=== PATIENT | female | born 1970 | race Caucasian/White ===

== ENCOUNTER → 2017-08-18 09:50 | Outpatient (CLI) | payer BC, SELFPAY ==
--- NOTE | 2017-08-18 08:00 | BRBX_PTH ---
PATIENT: LAKISHA OZUNA LOC: [facility] U#:[id number] AGE/SX: 55/F ROOM: RE08/18/[address]: Dr. Rc Goodman MD : 1970 BED: DIS: SPEC #: [id number] RECD: 08/18/17 09:44 STATUS: KAREEN ROHITH #: [id number] GILMAR: 08/18/17 08:[address]: Rc Goodman DEPT: SURGICAL PATHOLOGY RECD BY: Quique Rodriguez ENTERED: 08/18/17 10:06 SP TYPE: BREAST BX OTHR DR: Dr. Deisy Hilton MD Tissues: A - Left breast, NOS B - Left axillary region C - Right axillary region Procedures: Surgery Specimen Level IV HEADER OPERATION: Left breast biopsy and excision skin lump x2 PRE-OP DIAGNOSIS: Left breast abnormal ultrasound, skin mass x2 TISSUE SUBMITTED: A ? Left breast tissue, B ? Left axilla lump, C ? Right lateral chest lump ISCHEMIC TIME: 1 minute FIXATION TIME: 11.5 hours MICROSCOPIC DIAGNOSIS A. Left breast tissue, core biopsy: Fibroadenoma. Negative for atypia or malignancy in the submitted specimen. B. Left axilla lump, biopsy: Intradermal nevus, completely excised in the planes of sections examined. C. Right lateral chest lump, excisional biopsy: Dermatofibroma. GUADALUPE:kayode 08/19/17 MICROSCOPIC DESCRIPTION Slides are reviewed. GROSS DESCRIPTION A - Received in fixative is one container labeled with the patient's name and designated left breast. The specimen consists of two elongated pieces of chester-yellow fibroadipose tissue each measuring 1.2 cm in length and 0.1 cm in diameter. The entire specimen is submitted in one cassette. B - Received in fixative is one container labeled with the patient's name and designated left axilla. The specimen consists of a piece of skin with underlying tissue measuring 0.7 x 0.7 x 0.3 cm. The specimen is inked, bisected and submitted entirely in one cassette. C - Received in fixative is one container labeled with the patient's name and designated right lateral chest. The specimen consists of a piece of skin with underlying tissue measuring 1.5 x 0.9 cm and up to 0.7 cm in thickness. The specimen is inked, serially sectioned and submitted entirely in one cassette. / GUADALUPE:kayode 08/18/17 TC:1 CPT: 54347 x2
== END ==
LOC: LAB 09:53 → LABSPEC 09:54
PROVIDERS: Family Provider Family Medicine; PCP Family Medicine; Visit Provider Surgery
DX: R92.8 Other abnormal and inconclusive findings on diagnostic imaging of breast (principal); L98.8 Other specified disorders of the skin and subcutaneous tissue
CPT/HCPCS: 88305

== ENCOUNTER → 2019-04-21 | Outpatient (CLI) | payer BC, SELFPAY ==
--- NOTE | 2019-04-21 08:45 | BI_ITS ---
MAMMOGRAPHY - BILATERAL SCREENING 3-D TOMOSYNTHESIS REASON FOR EXAM: Female, 49 years old. Screening PERTINENT HISTORY: No significant family history. BILATERAL DIGITAL MAMMOGRAM WITH TOMOSYNTHESIS: Mediolateraloblique and craniocaudal views demonstrate no evidence of dominant parenchymal masses. No cluster of microcalcifications or architectural distortion is seen. There is evidence of a previous left breast biopsy with [address] No evidence of skin thickening is identified. There has been no significant change since 08/09/2017. Breast Density: The breast tissue is extremely dense which may lower the sensitivity of mammography. CAD was used to assist in final assessment. IMPRESSION: NORMAL MAMMOGRAM BILATERALLY. FINAL ASSESSMENT: FINAL ASSESSMENT: BI-RAD CATEGORY I (NEGATIVE) YEARLY MAMMOGRAPHY RECOMMENDED Approximately 10% of breast cancers are not detected by mammography. A normal mammogram should not delay biopsy of a clinically suspicious abnormality. Electronically Signed: Kemar Garcia, at 7:08 EDT Tel , Service support , BI/SCREEN MAMM (CAD) W/SKY WILLIAMSON
== END | disposition home or self-care (01) ==
PROVIDERS: Family Provider Family Medicine; PCP Family Medicine; Referring Provider Nurse Practitioner Family; Visit Provider Nurse Practitioner Family
DX: Z12.31 Encounter for screening mammogram for malignant neoplasm of breast (principal)
CPT/HCPCS: 77063; 77067

== ENCOUNTER 2019-06-01 07:05 | Day surgery (SDC) | payer BC, SELFPAY ==
--- NOTE | 2019-04-30 02:13 | HP_ITS ---
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 Is patient in pain?: Yes (abdominal tenderness/ pressure) Allergies No Known Allergies Allergy (Unverified 03/06/19 11:31) Medications sour shepard extract 1,000 mg capsule 1,200 mg PO cap 04/30/19 [History Confirmed 04/30/19] PFSH Medical History Anemia (Acute) Constipation (Acute) Diarrhea (Acute) Nausea (Acute) Abdominal pain (Acute) Back problem (Acute) Fatigue (Acute) Surgical History History of colonoscopy (Acute) History of hysterectomy (Acute) delivery delivered (Acute) Family History Mother Colon cancer Polycystic kidney disease Father Hypertension Sister Polycystic kidney disease Social History (Updated 04/30/19 @ 16:41 by Rc Goodman MD) Smoking Status: Never smoker second hand exposure: No alcohol intake: current alcohol intake frequency: holidays/special occasions only substance use type: does not use caffeine: Yes what type of physical activity do you participate in: walking, running, weight training frequency: 3-4 times per week HPI HPI HPI: LAKISHA OZUNA, is a 49 F who presents to the office today for HPI HPI Surgical H&P: Yes HPI: LAKISHA OZUNA, is a 49 F who presents to the office today for consideration of a colonoscopy. The patient enjoys good health. She is perimenopausal. She has had some weight gain. She has had some foods with increased fiber that causes her to bloat belch. She has not had any bright red blood per rectum or melena. She does have menopausal night sweats but no fever or chills. She has had some slight weight gain. She does exercise routinely. She denies chest pain palpitations or shortness of breath. May 07, 2008 because of lower abdominal pain at that time she had had a colonoscopy. Visually by Dr. Bradley there was felt to be edema in the colon. Biopsies were obtained but failed to demonstrate microcytic colitis. They failed to demonstrate any acute problem. The patient does have family history with a mother who had colon cancer. I have assisted the patient in the past for breast biopsy which identified benign disease/fibroadenoma on the left. ROS General General: Yes weight change and fatigue; no appetite, colon cancer, breast cancer or weakness HEENT HEENT: No difficulty swallowing, eye injury, eye surgery, swollen glands or hoarseness Endo Endocrine: No thyroid disease, diabetes mellitus, thyroid cancer, Hair loss, heat intolerance or cold intolerance Skin Skin: No rash or changing moles Musc Musculoskeletal: Yes back problems; no arthritis, rheumatoid arthritis, gout or joint pain Cardio Cardiovascular: No murmur, pacemaker, heart disease, atrial fibrillation, high blood pressure, heart attack, heart stent, palpitations, shortness of breat with exertion or chest pain Psych Psychiatric: No depression, anxiety or hearing voices Resp Respiratory: No shortness of breath, No sleep apnea, No cough, No COPD, No asthma, No emphysema, No wheezing Gastro Gastrointestinal: Yes abdominal pain, Yes nausea or vomiting, Yes diarrhea, Yes constipation, No blood in stool, No acid reflux, No hemorrhoids, No ulcers, No gallbladder problem, No black,tarry stools Collins Hematologic: No blood thinners, No blood disorders, No bleeding, Yes anemia, No blood clots Neuro Neurologic: No system reviewed and no additional complaints, except as docu, No as per HPI, No abnormal walking, No abnormal hearing, No abnormal movements, No abnormal speech, No behavioral changes, No burning sensations, No confusion, No seizure-like activity, No unsteadiness, No dizziness, No localized weakness, No frequent falls, No headache(s), No lack of coordination, No loss of vision, No memory loss, No numbness, No other visual disturbances, No radiating pain, No restless legs, No sensory deficit, No fainting, No tingling, No tremor(s), No weakness, No other Exam Const General: cooperative, healthy appearing, comfortable, no acute distress Nutritional Appearance: average body habitus Orientation: alert, awake, oriented x3 HENMT Head: normal to inspection Resp Effort & Inspection: normal respiratory effort Auscultation: clear to auscultation bilaterally Cardio Rate: regular rate Rhythm: regular rhythm Heart Sounds: no murmurs GI Palpation: soft, no hepatosplenomegaly Auscultation: normal bowel sounds Other: Slight tenderness overlying the pulsatile aorta, not expansile Skin General: no rashes or lesions noted Neuro Cognition: normal cognition Extrem General: no calf tenderness bilaterally Psych Affect: normal affect Assessment & Plan Problems 1. Screening for intestinal cancer Z12.10 Plan I have recommended the patient a screening colonoscopy with possible biopsy or polypectomy as indicated. She is aware of the technique, benefits, risks and alternatives. I will have a lower tendency to consider random biopsies. Her concerns of some random bloating are very nonspecific. She has had an opportunity to ask and have questions answered. We will schedule procedure at her discretion. I will utilize monitored anesthesia care. cc: Dr Deisy Goodman M.D., F.A.C.S. Orders Orders: Colonoscopy Today Z12.10 Coding Level of Care Code Off vis,est,level 2 Diagnoses Screening for intestinal cancer Z12.10 04/30/19 1641 <Electronically signed by Rc jennings MD> Date _ Rc oGodman MD
[2019-04-30 13:56] VITALS: BMI 25.8
[2019-06-01] VITALS (7 sets, daily range): BP systolic 116–130; BP diastolic 79–91; PULSE 71–87; RESP 16; TEMP 36.6; O2SAT 98–100; BMI 25.9
--- NOTE | 2019-06-01 05:55 | HP.PCM_ITS ---
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 Is patient in pain?: Yes (abdominal tenderness/ pressure) Allergies No Known Allergies Allergy (Unverified 03/06/19 11:31) Medications sour shepard extract 1,000 mg capsule 1,200 mg PO cap 04/30/19 [History Confirmed 04/30/19] PFS Medical History Anemia (Acute) Constipation (Acute) Diarrhea (Acute) Nausea (Acute) Abdominal pain (Acute) Back problem (Acute) Fatigue (Acute) Surgical History History of colonoscopy (Acute) History of hysterectomy (Acute) delivery delivered (Acute) Family History Mother Colon cancer Polycystic kidney disease Father Hypertension Sister Polycystic kidney disease Social History (Updated 04/30/19 @ 16:41 by Rc Goodman MD) Smoking Status: Never smoker second hand exposure: No alcohol intake: current alcohol intake frequency: holidays/special occasions only substance use type: does not use caffeine: Yes what type of physical activity do you participate in: walking, running, weight training frequency: 3-4 times per week HPI HPI HPI: LAKISHA OZUNA, is a 49 F who presents to the office today for HPI HPI Surgical H&P: Yes HPI: LAKISHA OZUNA, is a 49 F who presents to the office today for consideration of a colonoscopy. The patient enjoys good health. She is perimenopausal. She has had some weight gain. She has had some foods with increased fiber that causes her to bloat belch. She has not had any bright red blood per rectum or melena. She does have menopausal night sweats but no fever or chills. She has had some slight weight gain. She does exercise routinely. She denies chest pain palpitations or shortness of breath. May 07, 2008 because of lower abdominal pain at that time she had had a colonoscopy. Visually by Dr. Bradley there was felt to be edema in the colon. Biopsies were obtained but failed to demonstrate microcytic colitis. They failed to demonstrate any acute problem. The patient does have family history with a mother who had colon cancer. I have assisted the patient in the past for breast biopsy which identified benign disease/fibroadenoma on the left. ROS General General: Yes weight change and fatigue; no appetite, colon cancer, breast cancer or weakness HEENT HEENT: No difficulty swallowing, eye injury, eye surgery, swollen glands or hoarseness Endo Endocrine: No thyroid disease, diabetes mellitus, thyroid cancer, Hair loss, heat intolerance or cold intolerance Skin Skin: No rash or changing moles Musc Musculoskeletal: Yes back problems; no arthritis, rheumatoid arthritis, gout or joint pain Cardio Cardiovascular: No murmur, pacemaker, heart disease, atrial fibrillation, high blood pressure, heart attack, heart stent, palpitations, shortness of breat with exertion or chest pain Psych Psychiatric: No depression, anxiety or hearing voices Resp Respiratory: No shortness of breath, No sleep apnea, No cough, No COPD, No asthma, No emphysema, No wheezing Gastro Gastrointestinal: Yes abdominal pain, Yes nausea or vomiting, Yes diarrhea, Yes constipation, No blood in stool, No acid reflux, No hemorrhoids, No ulcers, No gallbladder problem, No black,tarry stools Collins Hematologic: No blood thinners, No blood disorders, No bleeding, Yes anemia, No blood clots Neuro Neurologic: No system reviewed and no additional complaints, except as docu, No as per HPI, No abnormal walking, No abnormal hearing, No abnormal movements, No abnormal speech, No behavioral changes, No burning sensations, No confusion, No seizure-like activity, No unsteadiness, No dizziness, No localized weakness, No frequent falls, No headache(s), No lack of coordination, No loss of vision, No memory loss, No numbness, No other visual disturbances, No radiating pain, No restless legs, No sensory deficit, No fainting, No tingling, No tremor(s), No weakness, No other Exam Const General: cooperative, healthy appearing, comfortable, no acute distress Nutritional Appearance: average body habitus Orientation: alert, awake, oriented x3 HENMT Head: normal to inspection Resp Effort & Inspection: normal respiratory effort Auscultation: clear to auscultation bilaterally Cardio Rate: regular rate Rhythm: regular rhythm Heart Sounds: no murmurs GI Palpation: soft, no hepatosplenomegaly Auscultation: normal bowel sounds Other: Slight tenderness overlying the pulsatile aorta, not expansile Skin General: no rashes or lesions noted Neuro Cognition: normal cognition Extrem General: no calf tenderness bilaterally Psych Affect: normal affect Assessment & Plan Problems 1. Screening for intestinal cancer Z12.10 Plan I have recommended the patient a screening colonoscopy with possible biopsy or polypectomy as indicated. She is aware of the technique, benefits, risks and alternatives. I will have a lower tendency to consider random biopsies. Her concerns of some random bloating are very nonspecific. She has had an opportunity to ask and have questions answered. We will schedule procedure at her discretion. I will utilize monitored anesthesia care. cc: Dr Deisy Goodman M.D., F.A.C.S. I have re-examined the patient. There are no clinical changes since date of exam.
[2019-06-01] MEDS: Lactated Ringers 1,000 ML 100 ML IV (07:42)
--- NOTE | 2019-06-01 09:11 | OP.COLON_ITS ---
Patient Name: Nikia Thakur Procedure Date: 06/01/2019 8:24 AM Date of : 1970 Age: 49 Procedure: Colonoscopy Indications: Screening for colorectal malignant neoplasm Providers: Rc Goodman MD Referring MD: Deisy Hilton Medicines: See the Anesthesia note for documentation of the administered medications Patient Profile: Last Colonoscopy: 2007. Complications: No immediate complications. Procedure: Pre-Anesthesia Assessment: - Prior to the procedure, a History and Physical was performed, and patient medications and allergies were reviewed. The patient's tolerance of previous anesthesia was also reviewed. The risks and benefits of the procedure and the sedation options and risks were discussed with the patient. All questions were answered, and informed consent was obtained. Prior Anticoagulants: The patient has taken no previous anticoagulant or antiplatelet agents. ASA Grade Assessment: II - A patient with mild systemic disease. After reviewing the risks and benefits, the patient was deemed in satisfactory condition to undergo the procedure. After I obtained informed consent, the scope was passed under direct vision. Throughout the procedure, the patient's blood pressure, pulse, and oxygen saturations were monitored continuously. The colonoscope was introduced through the anus and advanced to the cecum, identified by appendiceal orifice and ileocecal valve. The colonoscopy was extremely difficult due to a redundant colon, significant looping and a tortuous colon. Successful completion of the procedure was aided by increasing the dose of sedation medication, changing the patient to a supine position and using manual pressure. The patient tolerated the procedure well. The quality of the bowel preparation was good. The ileocecal valve was photographed. Scope In: 8:31:09 AM Scope Withdrawal Time 0 hours 6 minutes 35 seconds Scope Out: 9:06:45 AM Total Procedure Duration Time 0 hours 35 minutes 36 seconds Findings: Hemorrhoids were found on perianal exam. The colon (entire examined portion) revealed significantly excessive looping. Advancing the scope required changing the patient to a supine position, using manual pressure, withdrawing and reinserting the scope, withdrawing the scope and replacing with the adult endoscope and straightening and shortening the scope to obtain bowel loop reduction. The exam was otherwise without abnormality. Impression: - Hemorrhoids found on perianal exam. - There was significant looping of the colon. - The examination was otherwise normal. - No specimens collected. Recommendation: - Discharge patient to home. - Resume previous diet. - Continue present medications. - Repeat colonoscopy in 10 years for screening purposes. Procedure Code(s): --- Professional --- 69807, Colonoscopy, flexible; diagnostic, including collection of specimen(s) by brushing or washing, when performed (separate procedure) Diagnosis Code(s): --- Professional --- Z12.11, Encounter for screening for malignant neoplasm of colon K64.9, Unspecified hemorrhoids CPT copyright 2017 [employer]. All rights reserved. The codes documented in this report are preliminary and upon rivet heater gas review may be revised to meet current compliance requirements. Rc Goodman MD 06/01/2019 9:11:22 AM This report has been signed electronically. Number of Addenda: 0 Note Initiated On: 06/01/2019 8:24 AM
[2019-06-01] MEDS: Acetaminophen 500 MG Tablet 1000 MG PO (10:15)
== END 2019-06-01 11:05 | disposition home or self-care (01) ==
LOC: EN 07:06 → AC 07:07
PROVIDERS: Family Provider Family Medicine; PCP Family Medicine; Referring Provider Family Medicine; Visit Provider Surgery
PROC: 0DJD8ZZ Inspection of Lower Intestinal Tract, Via Natural or Artificial Opening Endoscopic (ICD-10-PCS; CPT 45378; principal; 2019-06-01 07:55)
DX: Z12.11 Encounter for screening for malignant neoplasm of colon (principal); Z80.0 Family history of malignant neoplasm of digestive organs; K64.9 Unspecified hemorrhoids
CPT/HCPCS: 45378; J7120; J2405

== ENCOUNTER → 2020-03-19 16:05 | Outpatient (CLI) | payer BC, SELFPAY ==
[2019-06-01 07:27] VITALS: BMI 25.9
[2020-03-19 17:38] LABS: Absolute Lymphocyte Count 2.16 X10^3/uL (0.83-4.51); Absolute Neutrophil Count 3.3 X10^3/uL (2.0-7.7); Basophil# 0.04 X10^3/uL; Basophil% 0.6 % (0-1); Eosinophil# 0.36 X10^3/uL; Eosinophils% 5.7 % (0-5); Hematocrit 40.3 % (37-47); Hemoglobin 13.6 g/dL (12.0-15.0); Lymphocyte # 2.16 X10^3/ul (4.0); Lymphocyte % 34.2 % (19-41); Mean Corp Hgb Conc 33.7 g/dL (32-36); Mean Corpuscular Hgb 30.3 pg (27.0-32.0); Mean Corpuscular Volume 89.8 fL (81-99); Mean Platelet Vol. 10.2 fl (6.2-12.0); Monocyte# 0.44 X10^3/uL; NRBC Flagged by Analyzer 0 % (0-5); Neutrophil # 3.31 X10^3/uL (2.7-7.7); Neutrophil % 52.3 % (47-70); Platelet Count 196 K/mm3 (150-450); RBC Distribution Width CV 12.1 % (11.6-14.6); RBC Distribution Width SD 39.9 fl (35.1-43.9); Red Blood Count 4.49 M/mm3 (4.2-5.4); White Blood Count 6.3 K/mm3 (4.4-11.0)
[2020-03-19 18:25] LABS: Anion Gap 4 (5-15); BUN 13 mg/dL (7-18); BUN/Creat Ratio 15.8 RATIO (10-20); Calcium,Total 9.2 mg/dL (8.5-10.1); Chloride 107 mmol/L (98-107); Creatinine, Serum 0.82 mg/dL (0.55-1.02); EST Glomerular Filtration Rate 77 mL/min (>60); Est Glom Filt Rate - Afr Amer 94 mL/min (>60); Glucose 85 mg/dL (74-106); Potassium 3.7 mmol/L (3.5-5.1); Sodium Level 139 mmol/L (136-145); Thyroid Stim Hormone (TSH) 1.07 uIU/mL (0.358-3.74)
== END ==
PROVIDERS: PCP Family Medicine; Referring Provider Family Medicine; Visit Provider Family Medicine
DX: Z78.0 Asymptomatic menopausal state (principal)
CPT/HCPCS: 36415; 80048; 84443; 85025

== ENCOUNTER → 2021-03-03 09:26 | Outpatient (CLI) | payer BC, SELFPAY ==
[2019-06-01 07:27] VITALS: BMI 25.9
--- NOTE | 2021-03-03 09:31 | MRI_ITS ---
STUDY: MRI BRAIN WITH AND WITHOUT CONTRAST REASON FOR EXAM: Female, 51 years old patient with acute neurological changes. Patient has migraine headache with numbness and tingling in left arm and neck pain for seven days. TECHNIQUE: Standardized multiplanar fat and water weighted pulse sequences were obtained. 15 ml of IV Dotarem was administered for the contrast portion of the examination. COMPARISON: Prior comparison studies are not available for review at this time. FINDINGS: Normal size of the ventricles and extra-axial spaces for the patient''s age. There are scattered foci of abnormal T2 hyperintensity present primarily in the subcortical white matter of the parietal lobes and left echavarria radiata. Normal T2* images of the brain without demonstrated susceptibility artifact. There is no demonstrated hemosiderin stain. There is no evidence for recent intracranial ischemia or other cause of cytotoxic edema on diffusion weighted imaging (DWI). Normal bilateral basal ganglia. Normal thalami. There is no extra-axial fluid accumulation. Normal flow voids within the major intracranial circulation suggesting patency by spin echo criteria. Normal venous enhancement. There is no enhancing intra-axial or extra-axial abnormality. Normal sella turcica, pituitary gland, infundibular stalk, optic chiasm and hypothalamus. Normal tectal plate and pineal gland. Normal midbrain, nathan and medulla. Normal cerebellum. Normal basal cisterns. Normal bilateral temporal bones. Normal bilateral internal auditory canals. No demonstrated orbital abnormality, within the constraints of a routine brain study. Normal visualized paranasal sinuses. Normal calvarium and skull base. Normal visualized soft tissue structures. Normal visualized upper cervical spine. MRI/Brain W/WO Contrast IMPRESSION: 1. Scattered foci of abnormal signal within the white matter. This is abnormal for patient this age. The appearance suggests possible sequela demyelination. 2. No MR evidence to suggest acute infarct or active demyelination. Electronically Signed: Marti Doty MD at 14:47 EDT , Service support ,
== END ==
PROVIDERS: PCP Family Medicine; Referring Provider Nurse Practitioner Family; Visit Provider Nurse Practitioner Family
DX: R29.818 Other symptoms and signs involving the nervous system (principal)
CPT/HCPCS: 70553; A9575

== ENCOUNTER → 2021-05-06 10:44 | Outpatient (CLI) | payer BC, SELFPAY ==
[2021-05-06 12:07] LABS: Erythrocyte Sedimentation Rate 2 mm/hr (0-30)
[2021-05-06 12:18] LABS: Cholesterol 180 mg/dL (200); High Density Lipoprotein 60 mg/dL; Triglycerides 79 mg/dL; Very Low Density Lipoprotein 16 mg/dL (5-40)
[2021-05-07 15:21] LABS: ANTINUCLEAR ANTIBODIES DIRECT Negative (Negative)
[2021-05-12 11:08] LABS: Complement C3 114 mg/dL (82-167); PTT-LA 35.1 sec (0.0-51.9); Protein C Antigen 139 % (60-150); Protein S, Free 98 % (61-136); Thrombin Time 18.7 sec (0.0-23.0)
[2021-05-12 15:00] LABS: Anti-Cardiolipin Ab, IgA, Qn < 9 APL U/mL (0-11); Anti-Cardiolipin Ab, IgG, Qn < 9 GPL U/mL (0-14); Anti-Cardiolipin Ab, IgM, Qn 18 MPL U/mL (0-12); Anti-Thrombin 3 AG, Immunol 97 % (72-124); Antithrombin 3 Function 101 % (75-135); Complement CH50 46 U/mL (>41); Dilute Prothrombin Time (dPT) 36.5 sec (0.0-55.0); Interpretation Comment: (.); Protein C, Functional 134 % (73-180); Protein S, Funtional 83 % (63-140); Protein S, Total 87 % (60-150); dPT Confirm Ratio 1.05 Ratio (0.00-1.40)
== END ==
PROVIDERS: PCP Family Medicine; Referring Provider Psychiatry & Neurology Neurology; Visit Provider Psychiatry & Neurology Neurology
DX: G43.109 Migraine with aura, not intractable, without status migrainosus (principal); Z86.73 Personal history of transient ischemic attack (TIA), and cerebral infarction without residual deficits
CPT/HCPCS: 36415; 80061; 81240; 81241; 85300; 85301; 85302; 85303; 85305; 85306; 85652; 86038; 86147; 86160; 86162; 86225; 86235

== ENCOUNTER → 2021-05-26 12:45 | Outpatient (CLI) | payer BC, SELFPAY ==
--- NOTE | 2021-05-26 12:50 | CDU_ITS ---
Reason For Study: Prior ischemic stroke Rt. Velocities/BP Lt. Velocities/BP Prox CCA 109.9/27.8 cm/sec. Prox CCA 65.1/16.8 cm/sec. Mid CCA 100.8/25.2 cm/sec. Mid CCA 98.1/28.9 cm/sec. Dist CCA 94.3/29.1 cm/sec. Dist CCA 81.6/23.4 cm/sec. Prox ICA 77.3/21.3 cm/sec. Prox ICA 62.9/16.8 cm/sec. Mid ICA 70.8/29.1 cm/sec. Mid ICA 73.9/30 cm/sec. Dist ICA 106/42.1 cm/sec. Dist ICA 89.3/38.8 cm/sec. Rt. ICA/CCA = 1.1. Lt. ICA/CCA = 1.1. Prox ECA 72.1/12.1 cm/sec. Prox ECA 90.4/19 cm/sec. Rt. Vert. 45.4/17.9 cm/sec. Lt. Vert. 41.5/18.7 cm/sec. Right Extracranial There is homogeneous, smooth atherosclerotic plaque noted in the right common carotid artery. There is intimal thickening but no significant atherosclerotic plaque noted in the right internal carotid artery. There is intimal thickening but no significant atherosclerotic plaque noted in the right external carotid artery. Antegrade flow is noted in the right vertebral artery. Left Extracranial There is homogeneous, smooth atherosclerotic plaque noted in the left common carotid artery. There is intimal thickening but no significant atherosclerotic plaque noted in the left internal carotid artery. There is intimal thickening but no significant atherosclerotic plaque noted in the left external carotid artery. Antegrade flow is noted in the left vertebral artery. Procedure Carotid Duplex 17176. This is a Carotid Duplex examination using B-mode, color flow and specral Doppler. Exam performed in department. VL/Carotid Duplex Ultrasound Interpretation Summary No hemodynamically significant plaque or stenosis right extracranial internal c arotid artery with less than 50% stenosis Less than 50% stenosis right external carotid artery No hemodynamically significant plaque or stenosis left extracranial internal ca rotid artery with less than 50% stenosis Less than 50% stenosis left external carotid artery Patent and antegrade vertebral arteries bilaterally Ordering Physician: Gustavo Godfrey Referring Physician: Deisy Hilton M.D. Performed By: Lakisha Barnes RVT
== END ==
PROVIDERS: PCP Family Medicine; Referring Provider Psychiatry & Neurology Neurology; Visit Provider Psychiatry & Neurology Neurology
DX: G43.109 Migraine with aura, not intractable, without status migrainosus (principal); Z86.73 Personal history of transient ischemic attack (TIA), and cerebral infarction without residual deficits
CPT/HCPCS: 93880

== ENCOUNTER → 2021-06-16 09:12 | Outpatient (CLI) | payer BC, SELFPAY ==
--- NOTE | 2021-06-16 09:13 | EKG12_ITS ---
Test Reason : Blood Pressure : / mmHG Vent. Rate : 063 BPM Atrial Rate : 063 BPM P-R Int : 162 ms QRS Dur : 076 ms QT Int : 386 ms P-R-T Axes : 043 062 044 degrees QTc Int : 395 ms Normal sinus rhythm Normal ECG Confirmed by LEONOR CALLEJAS, MICHELLE ([id number]), video editor GINO BRUMFIELD ([id number]) on 06/17/2021 8:40:18 AM Referred By: Gustavo Godfrey Confirmed By:MICHELLE GALVEZ MD
== END ==
PROVIDERS: PCP Family Medicine; Referring Provider Psychiatry & Neurology Neurology; Visit Provider Psychiatry & Neurology Neurology
DX: G43.109 Migraine with aura, not intractable, without status migrainosus (principal); Z86.73 Personal history of transient ischemic attack (TIA), and cerebral infarction without residual deficits
CPT/HCPCS: 93005

== ENCOUNTER → 2022-04-13 | Outpatient (CLI) | payer OTHER, SELFPAY ==
[2022-04-13 12:11] LABS: Absolute Lymphocyte Count 1.43 X10^3/uL (0.83-4.51); Absolute Neutrophil Count 2.5 X10^3/uL (2.0-7.7); Basophil# 0.03 X10^3/uL; Basophil% 0.7 % (0-1); Eosinophils% 2.3 % (0-5); Hematocrit 38.7 % (37-47); Hemoglobin 12.7 g/dL (12.0-15.0); Lymphocyte # 1.43 X10^3/ul (0.83-4.51); Lymphocyte % 32.5 % (19-41); Mean Corp Hgb Conc 32.8 g/dL (32-36); Mean Corpuscular Hgb 29.8 pg (27.0-32.0); Mean Corpuscular Volume 90.8 fL (81-99); Mean Platelet Vol. 10.1 fl (6.2-12.0); Monocyte# 0.29 X10^3/uL; Monocyte% 6.6 % (0-10); NRBC Flagged by Analyzer 0 % (0-5); Neutrophil # 2.54 X10^3/uL (2.7-7.7); Neutrophil % 57.7 % (47-70); Platelet Count 198 K/mm3 (150-450); RBC Distribution Width CV 12.8 % (11.6-14.6); RBC Distribution Width SD 42.2 fl (35.1-43.9); Red Blood Count 4.26 M/mm3 (4.2-5.4); White Blood Count 4.4 K/mm3 (4.4-11.0)
[2022-04-13 12:34] LABS: Thyroid Stim Hormone (TSH) 1.02 uIU/mL (0.358-3.74)
== END | disposition home or self-care (01) ==
LOC: MFPLAB 10:00
PROVIDERS: PCP Family Medicine; Referring Provider Family Medicine; Visit Provider Family Medicine
DX: R55 Syncope and collapse (principal)
CPT/HCPCS: 36415; 84443; 85025

== ENCOUNTER 2022-07-09 12:23 | Emergency (ER) | payer OTHER, SELFPAY ==
[2022-07-09 12:24] VITALS: BP 147/98; PULSE 99; RESP 16; TEMP 35.7; O2SAT 97; BMI 29.2
--- NOTE | 2022-07-09 12:36 | CT_ITS ---
STUDY: CTA HEAD AND NECK WITH CONTRAST REASON FOR EXAM: Female, 52 years old. Weakness RADIATION DOSAGE (If Supplied By Facility): CTDIvol = ( 26.47 ) mGy, DLP = ( 1409.94 ) mGycm TECHNIQUE: CT angiography was performed with a multi-detector CT scanner. Data acquisition was obtained from the skull base through the vertex following intravenous administration of IV 100mL [id number]-[id number]. MIP images were reconstructed from the axial data set. Post-processing of the angiographic images was performed, with multiplanar reformation and 3D reconstruction. Individualized dose optimization techniques were used for this CT. COMPARISON: No relevant priors. FINDINGS: Normal bilateral petrous carotid arteries. Normal right cavernous carotid artery with a normal supraclinoid bifurcation. Normal left cavernous carotid artery with a normal supraclinoid bifurcation. Normal right A1 segments of the anterior cerebral artery. Normal left A1 segments of the anterior cerebral artery. Normal intact anterior communicating artery (ACOM). Normal bilateral A2 segments of the anterior cerebral arteries. Normal right M1 and M2 segments of the middle cerebral arteries, with a normal M1 bifurcation. Normal left M1 and M2 segments of the middle cerebral arteries, with a normal M1 bifurcation. Normal right posterior communicating artery (PCOM). Normal left posterior communicating artery (PCOM). Normal bilateral vertebral arteries. Normal basilar artery with a normal basilar bifurcation. The visualized bilateral superior cerebellar (SCA) arteries are normal. Normal bilateral P1, P2 and visualized P3 segments of the posterior cerebral arteries. There is no demonstrated aneurysm of the [place]. There is no demonstrated abnormality of the visualized brain. AORTIC ARCH: Normal visualized aortic arch. Normal origins of the brachiocephalic, left common carotid, and left subclavian arteries. RIGHT CAROTID ARTERIES: Normal right common carotid artery (CCA). Normal right common carotid bulb. Normal origin of the right internal carotid (ICA) artery without a hemodynamically significant stenosis. Normal visualized cervical portion of the right internal carotid artery. Normal origin of the right external carotid artery (ECA). LEFT CAROTID ARTERIES: Normal left common carotid artery (CCA). Normal left common carotid bulb. Normal origin of the left internal carotid (ICA) artery without a hemodynamically significant stenosis. Normal visualized cervical portion of the left internal carotid artery. Normal origin of the left external carotid artery (ECA). VERTEBRAL ARTERIES: Normal bilateral vertebral arteries. CT/CTA Head AND Neck W/ Contrast IMPRESSION: Normal CTA Head and neck with contrast. Electronically Signed: Nitin Mathew MD at 13:50 EST ,
--- NOTE | 2022-07-09 12:37 | EX.ED.DYSGE1 ---
HPI History of Present Illness Chief Complaint: Syncope Detail of Chief Complaint: Near syncope Informant: patient Onset/Context/Timing Onset: Today Narrative Narrative: Patient presents after near syncopal episode at home. She states she went outside around 830 this morning to help some of her outside animals. While there she developed a headache and had trouble with her vision. She became weak and her daughter helped her back in the house. She states now she has some intermittent pain to the joints in the left side of her body, but overall her symptoms are significantly improved. She is a history of anticardiolipin antibodies and has had prior strokes per previous MRI. Patient states she never early had any symptoms with the strokes. She called her word processor technician to refer her to the emergency room today. [facility] Medical History Abdominal pain Anemia Back problem Constipation Diarrhea Fatigue Nausea Screening for intestinal cancer Stroke Home Medications aspirin 81 mg capsule 81 mg PO DAILY 06/22/21 [History Last Taken Unknown] fluoxetine 20 mg capsule 20 mg PO DAILY 07/09/22 [History Last Taken Unknown] Allergy/AdvReac Type Severity Reaction Status Date / Time amoxicillin [From Augmentin] AdvReac Intermediate Hives Verified 07/09/22 12:23 clavulanic acid AdvReac Intermediate Hives Verified 07/09/22 12:23 [From Augmentin] Family History Mother Colon cancer Polycystic kidney disease Migraine headache Father Hypertension Sister Polycystic kidney disease Surgical History delivery delivered History of colonoscopy History of hysterectomy Social History Smoking Status: Never smoker Electronic Cigarette Use: not used second hand exposure: No alcohol intake: current alcohol intake frequency: holidays/special occasions only details: socially - holidays substance use type: does not use caffeine: Yes Type: coffee Number of servings: 2 what type of physical activity do you participate in: walking frequency: 3-4 times per week shy/temple: Denominational seatbelt use: always do you feel safe at home: Yes ROS ROS ED Constitutional Constitutional ED: Denies chills or fever(s) Eyes Eyes: Reports change in vision; Denies discharge from eye(s) ENT ENT ED: Denies discharge from eye(s), rhinorrhea or sore throat Cardiovascular Cardiovascular: Denies chest pain or palpitations Respiratory/Chest Respiratory/Chest: Denies cough or dyspnea Gastrointestinal Gastrointestinal: Denies abdominal pain, diarrhea, nausea or vomiting Genitourinary Genitourinary ED: Denies dysuria Musculoskeletal Musculoskeletal: Reports extremity pain; Denies back pain Integumentary Denies Abrasions or rash Neurologic Neurologic: Reports headache(s) and weakness Psychiatric Psychiatric: Denies anxiety or depression Endocrine Endocrinology: Denies polydipsia or polyuria Allergic/Immunologic Allergic/Immunologic ED: Denies lip swelling or urticaria EXAM Physical Exam Const Vital Signs: 07/09/22 12:24 Temperature 96.3 F L Temperature Source Temporal Pulse Rate 99 Respiratory Rate 16 Blood Pressure 147/98 H Blood Pressure Mean 114 Pulse Ox 97 Oxygen Delivery Method Room Air Positive well nourished and well developed General Appearance ED: well developed HEENT Reports normocephalic and head/scalp atraumatic Eyes PERRL and EOMs intact bilaterally Neck supple Chest Wall inspection of chest normal and palpation of chest normal Resp normal respiratory effort and clear to auscultation bilaterally Cardio regular rate and regular rhythm GI normal to inspection, nondistended, normoactive bowel sounds Palpation: soft Extremity normal to inspection Neuro oriented x3 and no sensory deficits noted Neuro Narrative: NIH equals 0 at 12:35 PM. Sensorium / Orientation: alert Motor Exam: strength 5/5 throughout Psych mental status grossly normal Skin no rashes or lesions noted MDM MDM MDM Narrative Medical decision making narrative: CTA of the head and neck obtained. EKG, lab work ordered. Lab Data Attestation: I reviewed the patient's lab results. Labs: Laboratory Results - last 24 hr 07/09/22 07/09/22 12:35 12:35 WBC 7.0 RBC 4.39 Hgb 13.5 Hct 38.6 MCV 87.9 MCH 30.8 MCHC 35.0 RDW Std Deviation 40.6 RDW Coeff of Primo 12.5 Plt Count 197 MPV 9.4 Immature Gran % (Auto) 0.100 Neut % (Auto) 77.2 H Lymph % (Auto) 16.8 L Stanley % (Auto) 4.7 Eos % (Auto) 0.9 Baso % (Auto) 0.3 Absolute Neuts (auto) 5.4 Absolute Lymphs (auto) 1.17 Nucleated RBC % 0 Sodium 139 Potassium 4.1 Chloride 106 Carbon Dioxide 28.0 Anion Gap 5 BUN 12 Creatinine 0.86 Estim Creat Clear Calc 70.01 Est GFR (MDRD) Af Amer 88 Est GFR (MDRD) Non-Af 73 BUN/Creatinine Ratio 13.9 Glucose 106 Calcium 9.0 Troponin I High Sens 4 Radiography Diagnostic Testing: Clinical Impression(s) from Imaging Studies Head/Neck CTA 07/09/22 12:36 IMPRESSION: Normal CTA Head and neck with contrast. Electronically Signed: Nitin Mathew MD at 13:50 EST , EKG Initial EKG: Attestation: I personally reviewed and interpreted this EKG as follows: Interpretation: Sinus Rhythm (Sinus at 87 with no acute ischemia.) Treatment and Re-Evaluation Narrative: Repeat evaluation patient sitting upright in bed no acute distress. She had no further symptoms while in the emergency room. Lab work is unremarkable along with a normal EKG. No arrhythmias have been noted. CTA of the head and neck are unremarkable. I advised the patient I cannot explain what her episode was this morning. She may have had a vasovagal episode given that she felt lightheaded and sweaty. At this time she has normal work-up. Return instructions are given. Discharge Plan Triage Chief Complaint: Syncope ED Provider: Nikia Wallace Dx/Rx/DC Orders Clinical Impression: Near syncope Instructions: ED Near-Fainting, Uncertain Cause Prescriptions: No Action aspirin 81 mg capsule 81 mg PO DAILY fluoxetine 20 mg capsule 20 mg PO DAILY Label Comments: TAKE 1 CAPSULE BY MOUTH EVERY MORNING Primary Care Provider: Deisy Hilton Referrals: Deisy Hilton MD [Primary Care Provider] - As Needed Disposition Disposition: Home, Self Care
[2022-07-09 12:45] LABS: Absolute Lymphocyte Count 1.17 X10^3/uL (0.83-4.51); Absolute Neutrophil Count 5.4 X10^3/uL (2.0-7.7); Basophil# 0.02 X10^3/uL; Basophil% 0.3 % (0-1); Eosinophil# 0.06 X10^3/uL; Eosinophils% 0.9 % (0-5); Hematocrit 38.6 % (37-47); Hemoglobin 13.5 g/dL (12.0-15.0); Lymphocyte # 1.17 X10^3/ul (0.83-4.51); Lymphocyte % 16.8 % (19-41); Mean Corpuscular Hgb 30.8 pg (27.0-32.0); Mean Corpuscular Volume 87.9 fL (81-99); Mean Platelet Vol. 9.4 fl (6.2-12.0); Monocyte# 0.33 X10^3/uL; Monocyte% 4.7 % (0-10); NRBC Flagged by Analyzer 0 % (0-5); Neutrophil # 5.39 X10^3/uL (2.7-7.7); Neutrophil % 77.2 % (47-70); Platelet Count 197 K/mm3 (150-450); RBC Distribution Width CV 12.5 % (11.6-14.6); RBC Distribution Width SD 40.6 fl (35.1-43.9); Red Blood Count 4.39 M/mm3 (4.2-5.4)
[2022-07-09 13:01] LABS: Anion Gap 5 (5-15); BUN 12 mg/dL (7-18); BUN/Creat Ratio 13.9 RATIO (10-20); Chloride 106 mmol/L (98-107); Creatinine, Serum 0.86 mg/dL (0.55-1.02); EST Glomerular Filtration Rate 73 mL/min (>60); Est Glom Filt Rate - Afr Amer 88 mL/min (>60); Estimated Creatinine Clearance 70.01 ml/min; Glucose 106 mg/dL (74-106); Potassium 4.1 mmol/L (3.5-5.1); Sodium Level 139 mmol/L (136-145); Troponin-I HS 4 pg/mL (3.0-54.0)
== END 2022-07-09 14:32 | disposition home or self-care (01) ==
PROVIDERS: Emergency Provider Emergency Medicine; PCP Family Medicine; Visit Provider Emergency Medicine
DX: R55 Syncope and collapse (principal)
CPT/HCPCS: 70496; 70498; 80048; 84484; 85025; 93005; 96360; 99284; J7040; Q9967; A4216

== ENCOUNTER → 2023-09-19 | Outpatient (CLI) | payer OTHER, SELFPAY ==
[2023-09-19 18:51] LABS: Anion Gap 5 (5-15); BUN 11 mg/dL (7-18); BUN/Creat Ratio 13.1 RATIO (10-20); Calcium,Total 8.9 mg/dL (8.5-10.1); Chloride 108 mmol/L (98-107); Cholesterol 184 mg/dL (200); Creatinine, Serum 0.84 mg/dL (0.55-1.02); EST Glomerular Filtration Rate 75 mL/min (>60); Est Glom Filt Rate - Afr Amer 91 mL/min (>60); Glucose 93 mg/dL (74-106); High Density Lipoprotein 49 mg/dL; Potassium 3.8 mmol/L (3.5-5.1); Protein, Urine (Random) 14.9 mg/dL (<11.9); Protein:Creat Ratio 87 mg/g CRE (0-200); Sodium Level 140 mmol/L (136-145); Triglycerides 105 mg/dL; Very Low Density Lipoprotein 21 mg/dL (5-40)
== END | disposition home or self-care (01) ==
LOC: MFPLAB 16:37
PROVIDERS: PCP Family Medicine; Visit Provider Family Medicine
DX: I10 Essential (primary) hypertension (principal)
CPT/HCPCS: 36415; 80048; 80061; 82570; 84156

== ENCOUNTER → 2024-03-08 | Outpatient (CLI) | payer OTHER, SELFPAY ==
--- NOTE | 2024-03-08 15:04 | BI_ITS ---
MAMMOGRAPHY - BILATERAL SCREENING REASON FOR EXAM: Female, 54 years old. Routine annual screening examination. PERTINENT HISTORY: Aunt with breast cancer. Remote left breast biopsy. TECHNIQUE: Digital bilateral breast sky (3D mammographic acquisition) in the CC and MLO projections. 2-D mediolateral oblique (MLO) and craniocaudad (CC) views of both breasts were obtained. CAD: Full Field Digital Mammography with Computer Added Detection was performed. COMPARISON: Comparison is made with prior study April 21, 2019 and August 09, 2017. FINDINGS: Breast Composition: The breasts are heterogeneously dense, which may obscure small masses. There are no dominant masses or suspicious calcifications. A tissue clip marker is seen in the upper the lateral portion of the left breast. A tissue clip marker is also seen in the upper lateral aspect of the left breast. A tissue clip marker is seen within the nodule in the deep upper lateral aspect of the left breast measuring 1.9 cm x 1.3 cm. No other significant abnormalities are identified. There has been no significant change since the prior study. BI/SCRN MAMM (CAD)W/SKY BILAT IMPRESSION: Stable bilateral screening mammogram. Yearly follow-up mammogram recommended. (A) ASSESSMENT CATEGORY: BIRADS Category 2: Benign. A letter regarding these results will be sent to the patient by the facility within 30 days. Approximately 10% of breast cancers are not detected by mammography. A normal mammogram should not delay biopsy of a clinically suspicious abnormality. [id number] Electronically Signed: Nitin Mathew MD at 15:56 EDT ,
--- NOTE | 2024-03-08 15:06 | BD_ITS ---
STUDY: DUAL ENERGY X-RAY ABSORPTIOMETRY / DXA REASON FOR EXAM: Female, 54 years old. [id number] TECHNIQUE: Bone Mineral Density (BMD) measurements of lumbar spine and bilateral hips were obtained. COMPARISON: None. FINDINGS: Lumbar Spine (L1-L4): g/cm2 (1.030) / T-score (-0.2) / Z-score (1.0) Findings are suggestive of normal bone density with a low fracture risk. Left Femur Total: g/cm2 (0.915) / T-score (-0.2) / Z-score (0.5) Left Femoral Neck: g/cm2 (0.705) / T-score (-1.3) / Z-score (-0.2) Right Femur Total: g/cm2 (0.916) / T-score (-0.2) / Z-score (0.5) Right Femoral Neck: g/cm2 (0.730) / T-score (-1.1) / Z-score (0.0) BD/Dexa Bone Density Study IMPRESSION: The patient is considered osteopenic as outlined below according to World Nnam[employer] Organization (WHO) criteria with a low fracture risk. Reference Information: The T-score is the number of standard deviations above or below the standard which is normal for young adults at their peak bone mineral density. The World Health Organization (WHO) interprets the T-scores as follows: Above -1 Normal bone density Between -1 and -2.5 Osteopenia Equal to / or below -2.5 Osteoporosis As a practical clinical guideline, osteopenia may be graded as follows: Mild -1 through -1.5 Moderate -1.6 through -2.0 Severe -2.1 through -2.4 The Z-score is the number of standard deviations above or below age-matched controls. A Z-score of less than -1.5 would be considered abnormal. References: 1. NIH Osteoporosis and Related Bone Diseases www osteo.org 2. International Society for Clinical Densitometry www iscd.org 3. National Osteoporosis Foundation www nof.org Electronically Signed: Nitin Mathew MD at 9:19 EDT ,
== END | disposition home or self-care (01) ==
LOC: OPBD 15:03
PROVIDERS: PCP Family Medicine; Referring Provider Family Medicine; Visit Provider Family Medicine
DX: Z12.31 Encounter for screening mammogram for malignant neoplasm of breast (principal); N95.9 Unspecified menopausal and perimenopausal disorder
CPT/HCPCS: 77063; 77067; 77080